=== PATIENT | female | born 1965 | race Caucasian/White ===

== ENCOUNTER 2021-09-20 09:13 | Emergency (ER) | payer SELFPAY | END 2021-09-20 09:45 | disposition home or self-care (01) | LOC: MADERS 09:13 | DX: H65.92 Unspecified nonsuppurative otitis media, left ear (principal); I10 Essential (primary) hypertension; F17.210 Nicotine dependence, cigarettes, uncomplicated | CPT/HCPCS: 99406 ==

== ENCOUNTER 2021-10-18 04:30 | Emergency (ER) | payer SELFPAY ==
[2021-10-18] MEDS ORDERED: Ketorolac Tromethamine 10 MG TAB ONE ×2 (05:15→05:27)
[2021-10-18] MEDS ORDERED: Metoprolol Tartrate 5 MG/5 ML VIAL ONE (05:15)
[2021-10-18] MEDS ORDERED: Metoprolol Tartrate 50 MG TAB ONE ×2 (05:18→05:26)
[2021-10-18] MEDS ORDERED: diphenhydrAMINE 25 MG CAP ONE ×2 (05:18→05:27)
== END 2021-10-18 05:55 | disposition home or self-care (01) ==
LOC: MADERS 04:30
DX: G43.919 Migraine, unspecified, intractable, without status migrainosus (principal); I10 Essential (primary) hypertension; I25.2 Old myocardial infarction; F17.210 Nicotine dependence, cigarettes, uncomplicated
CPT/HCPCS: 99283